=== PATIENT | male | born 1965 | race African-American/Black ===

== ENCOUNTER 2017-01-01 12:38 | Emergency (ER) | payer SELFPAY ==
[2017-01-01] MEDS ORDERED: Ketorolac Tromethamine 60 MG/2 ML VIAL ONE (13:09)
== END 2017-01-01 13:30 | disposition home or self-care (01) ==
LOC: NAV ERS 12:38
DX: M54.31 Sciatica, right side (principal); J44.9 Chronic obstructive pulmonary disease, unspecified; F17.210 Nicotine dependence, cigarettes, uncomplicated
CPT/HCPCS: 96372; J1885

== ENCOUNTER 2017-05-22 11:36 | Emergency (ER) | payer SELFPAY ==
--- NOTE | 2017-05-22 12:50 | RAD ---
CHEST TWO VIEWS: History: Cough. FINDINGS: Heart size and mediastinum are within normal limits. The lungs are clear of infiltrates. No significa nt bony findings. IMPRESSION: No active intrathoracic disease. POS: [facility]
== END 2017-05-22 12:26 | disposition home or self-care (01) ==
LOC: NAV ERS 11:36
DX: J40 Bronchitis, not specified as acute or chronic (principal); B34.9 Viral infection, unspecified; J44.1 Chronic obstructive pulmonary disease with (acute) exacerbation; F17.210 Nicotine dependence, cigarettes, uncomplicated; Z79.899 Other long term (current) drug therapy
CPT/HCPCS: 71046; 94640; J7620

== ENCOUNTER 2018-01-03 10:26 | Emergency (ER) | payer SELFPAY | END 2018-01-03 11:38 | disposition home or self-care (01) | LOC: NAV ERS 10:26 | DX: S81.012D Laceration without foreign body, left knee, subsequent encounter (principal); M25.562 Pain in left knee; J44.9 Chronic obstructive pulmonary disease, unspecified; F17.210 Nicotine dependence, cigarettes, uncomplicated; Z79.899 Other long term (current) drug therapy | CPT/HCPCS: 99283 ==

== ENCOUNTER 2018-01-13 12:15 | Emergency (ER) | payer SELFPAY ==
[2018-01-13] MEDS ORDERED: diphenhydrAMINE 50 MG/ML VIAL ONE (12:49)
[2018-01-13] MEDS ORDERED: Sodium Chloride 0.9% 1,000 ML ONE (12:49)
[2018-01-13] MEDS ORDERED: Metoclopramide HCl 10 MG/2 ML VIAL ONE (12:49)
--- NOTE | 2018-01-13 14:22 | CT ---
CT BRAIN WITHOUT CONTRAST: Date: 01/13/18 HISTORY: Trauma. Headache. COMPARISON: CT brain from 2016. FINDINGS: No acute hemorrhage or infarct. No midline shift or mass effect. Ventricular size and extra-axial CSF spaces are normal. Old right medial orbital wall fracture. IMPRESSION: No acute intracranial abnormality. POS: [facility]
== END 2018-01-13 15:13 | disposition home or self-care (01) ==
LOC: NAV ERS 12:15
DX: R51 Headache (principal); J44.9 Chronic obstructive pulmonary disease, unspecified; F17.210 Nicotine dependence, cigarettes, uncomplicated; Z79.899 Other long term (current) drug therapy
CPT/HCPCS: 70450; 96365; 96375; J1200; J2765; J7050

== ENCOUNTER 2018-08-03 14:23 | Emergency (ER) | payer SELFPAY ==
[2018-08-03] MEDS ORDERED: Lidocaine 1% w/Epinephrine 1:100K 30 ML VIAL ONE (14:49)
== END 2018-08-03 15:38 | disposition home or self-care (01) ==
LOC: NAV ERS 14:23
DX: L02.212 Cutaneous abscess of back [any part, except buttock and flank] (principal); J44.9 Chronic obstructive pulmonary disease, unspecified; F17.210 Nicotine dependence, cigarettes, uncomplicated
CPT/HCPCS: 10060; J2001

== ENCOUNTER 2018-08-20 21:24 | Emergency (ER) | payer SELFPAY ==
[2018-08-20] MEDS ORDERED: Acetaminophen 500 MG TAB ONE ×2 (21:34→21:35)
== END 2018-08-20 21:40 | disposition home or self-care (01) ==
LOC: NAV ERS 21:24
DX: R51 Headache (principal); F17.210 Nicotine dependence, cigarettes, uncomplicated; W19.XXXA Unspecified fall, initial encounter
CPT/HCPCS: 99283

== ENCOUNTER 2019-02-07 18:04 | Emergency (ER) | payer SELFPAY ==
[~2019-02-07 18:04] MED LIST: Iopamidol 370 76% 100 ML VIAL ONE
--- NOTE | 2019-02-07 18:18 | CT ---
Exam: CT brain PROVIDED CLINICAL HISTORY: Left-sided weakness COMPARISON: 01/13/2018 FINDINGS: The ventricular system is normal in size and morphology. No evidence for intracranial hemorrhage or mass effect. There is opacification of the majority of the nasal cavity as well as partial opacification of ethmoid air cells. The extracranial soft tissues and osseous structures appear other gomes unremarkable. IMPRESSION: No evidence for intracranial hemorrhage or mass effect. Findings communicated to the referring clinic evon 6:16 PM 02/07/2019.
[2019-02-07 18:23] LABS: INR-International Normal Ratio 1.1; Prothrombin Time 13.9 SEC (12.0-14.7)
[2019-02-07 18:24] LABS: PTT 26.6 SEC (22.9-36.1)
[2019-02-07 18:26] LABS: #Basophils 0.1 thou/uL (0.0-0.2); #Eosinphils 0.3 thou/uL (0.0-0.7); #Lymphocytes 2.8 thou/uL (1.20-3.40); #Monocytes 0.8 thou/uL (0.11-0.59); #Neutrophils 3.1 thou/uL (1.40-6.50); %Basophils 2.1 % (0.0-1.0); %Eosinophils 4.2 % (0.0-10.0); %Lymphocytes 39.3 % (21.0-51.0); %Monocytes 10.7 % (0.0-10.0); %Neutrophils 43.7 % (42.0-75.0); Hemoglobin 14.7 g/dL (14.0-18.0); Mean Corpuscular HGB CONC 31.9 g/dL (32.0-36.0); Mean Corpuscular Hemoglobin 29.6 pg (27.0-31.0); Mean Corpuscular Volume 92.8 fL (78.0-98.0); Mean Platelet Volume 6.4 fL (7.4-10.4); Platelet Count 346 thou/uL (130-400); RBC Distribution Width 14.4 % (11.5-14.5); Red Blood Cell (RBC) Count 4.98 mill/uL (4.70-6.10); White Blood Cell (WBC) Count 7.2 thou/uL (4.8-10.8)
[2019-02-07 18:35] LABS: ALT (SGPT) 15 U/L (8-55); AST (SGOT) 24 U/L (5-34); Albumin 4.7 g/dL (3.5-5.0); Alcohol 307 mg/dL (Less than 10); Alkaline Phosphatase 69 U/L (40-110); Anion Gap 17 mmol/L (10-20); BUN (Urea Nitrogen) 4 mg/dL (8.4-25.7); Bilirubin, Total 0.9 mg/dL (0.2-1.2); CK (CPK) 269 U/L (30-200); Calc. Creatinine Clearance 0 mL/min (70-130); Calcium 9.2 mg/dL (7.8-10.44); Carbon Dioxide 22 mmol/L (22-29); Chloride 102 mmol/L (98-107); Estimated GFR-MDRD Greater than 90; Globulin 3.4 g/dL (2.4-3.5); Glucose 99 mg/dL (70-105); Potassium 3.8 mmol/L (3.5-5.1); Protein, Total 8.1 g/dL (6.0-8.3); Sodium 137 mmol/L (136-145)
[2019-02-07 18:49] LABS: Bilirubin Negative (Negative); Blood, Urine Trace (Negative); Clarity Clear (Clear); Glucose, Urine (Dipstick) Negative (Negative); Leukocyte Negative (Negative); Nitrite Negative (Negative); Protein, Urine (Dipstick) 30 mg/dL (Neg-Trace); Urobilinogen 0.2 mg/dL (Less than 2)
[2019-02-07 18:58] LABS: Bacteria/HPF None Seen HPF (None Seen); RBC/HPF 0-3 HPF (0-3); Squamous Epithelial 0-3 HPF (0-3); WBC/HPF None Seen HPF (0-3)
[2019-02-07] MEDS ORDERED: Sodium Chloride 0.9% 1,000 ML ONE (18:58)
[2019-02-07 18:59] LABS: Amphetamine Not Detected (NotDetected); Barbiturates Screen Not Detected (NotDetected); Benzodiazepine Screen Not Detected (NotDetected); Cocaine Metabolite Screen Not Detected (NotDetected); Medtox Control Line Valid? VALID (VALID); Methadone Not Detected (NotDetected); Methamphetamine Not Detected (NotDetected); Opiate Screen Not Detected (NotDetected); Oxycodone Screen Not Detected (NotDetected); Phencyclidine (PCP) Not Detected (NotDetected); THC/Cannabinoid Screen Not Detected (NotDetected); Tricyclic Screen Not Detected (NotDetected)
--- NOTE | 2019-02-09 07:36 | CT ---
EXAM: CT angiogram great vessels neck with IV contrast and three-dimensional reconstructions CT angiogram brain with IV contrast and three-dimensional reconstructions PROVIDED CLINICAL HISTORY: Stroke COMPARISON: None FINDINGS: Contrast bolus in the neck is suboptimal, limiting evaluation. There is a normal three-vessel configuration of the great vessels at the arch. The common carotid, internal carotid, subclavian and vertebral arteries demonstrate no evidence for s ignificant stenosis. There is no evidence for focal vessel stenosis, branch occlusion or aneurysm involving the intracrani al circulation. IMPRESSION: Limited study as above without evidence for significant arterial vascular disease.
== END 2019-02-07 21:50 | disposition home or self-care (01) ==
LOC: NAV ERS 18:04
DX: F10.129 Alcohol abuse with intoxication, unspecified (principal); J44.9 Chronic obstructive pulmonary disease, unspecified; F17.210 Nicotine dependence, cigarettes, uncomplicated
CPT/HCPCS: 36415; 36416; 70450; 70496; 70498; 80053; 80306; 80307; 81003; 81015; 82550; 84484; 85025; 85610; 85730; 93005; 96360; J2997; J7050; Q9967

== ENCOUNTER 2019-08-20 16:22 | Emergency (ER) | payer SELFPAY ==
[2019-08-20] MEDS ORDERED: Mag-Al Plus 1200 MG/1200 MG/120 MG/30 ML UDCUP ONE (16:39)
[2019-08-20] MEDS ORDERED: Pantoprazole 40 MG VIAL ONE (16:39)
[2019-08-20] MEDS ORDERED: Lidocaine Viscous Sol 2% 15 ml UD Cup ONE (16:39)
[2019-08-20 16:42] LABS: #Basophils 0.1 thou/uL (0.0-0.2); #Eosinphils 0.4 thou/uL (0.0-0.7); #Lymphocytes 1.6 thou/uL (1.20-3.40); #Neutrophils 4.7 thou/uL (1.40-6.50); %Basophils 1.9 % (0.0-1.0); %Eosinophils 4.7 % (0.0-10.0); %Lymphocytes 20.4 % (21.0-51.0); %Monocytes 13.1 % (0.0-10.0); %Neutrophils 59.8 % (42.0-75.0); Hemoglobin 10.4 g/dL (14.0-18.0); Mean Corpuscular Hemoglobin 27.9 pg (27.0-31.0); Mean Corpuscular Volume 93.1 fL (78.0-98.0); Mean Platelet Volume 6.2 fL (7.4-10.4); Platelet Count 338 thou/uL (130-400); Red Blood Cell (RBC) Count 3.72 mill/uL (4.70-6.10); White Blood Cell (WBC) Count 7.9 thou/uL (4.8-10.8)
[2019-08-20 17:10] LABS: ALT (SGPT) 19 U/L (8-55); AST (SGOT) 34 U/L (5-34); Albumin 4.5 g/dL (3.5-5.0); Alcohol Less than 10 mg/dL (Less than 10); Alkaline Phosphatase 60 U/L (40-110); Anion Gap 11 mmol/L (10-20); BUN (Urea Nitrogen) 12 mg/dL (8.4-25.7); Bilirubin, Total 0.6 mg/dL (0.2-1.2); CK (CPK) 505 U/L (30-200); Calc. Creatinine Clearance 0 mL/min (70-130); Calcium 9.5 mg/dL (7.8-10.44); Carbon Dioxide 30 mmol/L (22-29); Chloride 104 mmol/L (98-107); Estimated GFR-MDRD 80; Glucose 111 mg/dL (70-105); Lipase 87 U/L (8-78); Potassium 4.1 mmol/L (3.5-5.1); Protein, Total 7.5 g/dL (6.0-8.3); Sodium 141 mmol/L (136-145)
--- NOTE | 2019-08-20 17:15 | RAD ---
PORTABLE CHEST: 08/20/19 PROVIDED CLINICAL HISTORY: Chest pain and intermittent cough. FINDINGS: Comparison 04/26/19. Cardiac and mediastinal silhouette is within normal limits. No focal consolidation, pleural fluid or pneumothorax apparent. IMPRESSION: No evidence for an acute cardiopulmonary process. POS: [facility]
== END 2019-08-20 18:08 | disposition home or self-care (01) ==
LOC: NAV ERS 16:22
DX: K29.20 Alcoholic gastritis without bleeding (principal); J44.9 Chronic obstructive pulmonary disease, unspecified; F17.210 Nicotine dependence, cigarettes, uncomplicated
CPT/HCPCS: 71045; 80053; 80307; 82550; 83690; 84484; 85025; 93005; 96374; C9113

== ENCOUNTER 2020-04-27 10:13 | Emergency (ER) | payer SELFPAY ==
--- NOTE | 2020-04-27 10:42 | RAD ---
EXAM: Two views chest PROVIDED CLINICAL HISTORY: Injury. COMPARISON: 08/20/2019 FINDINGS: Cardiac silhouette and pulmonary vasculature are within normal limits. Linear bibasilar densities ar e present which may be related to bibasilar atelectasis. Developing pneumonitis right lung base cannot be entirely excluded. There is no consolidation or pleural fluid identified. Degenerative bean ges are seen in the spine. IMPRESSION: 1. Bibasilar linear densities greater on the right which is most likely attributable to atelectasis. Developing pneumonitis could not be entirely excluded.
--- NOTE | 2020-04-27 10:44 | RAD ---
EXAM: XR Ribs Rt>=2 view STANDARD PROVIDED CLINICAL HISTORY: Injury. COMPARISON: Chest x-ray on 04/27/2020 and 08/20/2019 FINDINGS: Bibasilar linear densities are seen which are most likely attributable to atelectasis. No pleural eff usion or pneumothorax is identified. Mild degenerative changes are seen in the thoracic spine. No right-sided rib fracture is appreciated. A stable remote fracture is seen involving the posterolatera l left eighth rib. IMPRESSION: 1. No right-sided rib fracture is seen. 2. Bibasilar linear densities felt to most likely be attributable to atelectasis.
== END 2020-04-27 11:15 | disposition home or self-care (01) ==
LOC: NAV ERS 10:13
DX: S23.41XA Sprain of ribs, initial encounter (principal); J44.9 Chronic obstructive pulmonary disease, unspecified; F17.210 Nicotine dependence, cigarettes, uncomplicated; W22.8XXA Striking against or struck by other objects, initial encounter
CPT/HCPCS: 71046

== ENCOUNTER 2020-06-07 10:47 | Emergency (ER) | payer SELFPAY | END 2020-06-07 11:55 | disposition home or self-care (01) | LOC: NAV ERS 10:47 | DX: R76.11 Nonspecific reaction to tuberculin skin test without active tuberculosis (principal); J44.9 Chronic obstructive pulmonary disease, unspecified; F17.210 Nicotine dependence, cigarettes, uncomplicated | CPT/HCPCS: 71046 ==

== ENCOUNTER 2020-12-09 11:57 | Outpatient (CLI) | payer SELFPAY | END 2020-12-09 11:58 | disposition home or self-care (01) | LOC: NAV RAD 11:57 | PROVIDERS: ATTEND Preventive Medicine Public Health & General Preventive Medicine | DX: A15.0 Tuberculosis of lung (principal) | CPT/HCPCS: 71046 ==

== ENCOUNTER 2020-12-15 22:37 | Emergency (ER) | payer SELFPAY ==
[2020-12-15] MEDS ORDERED: Ketorolac Tromethamine 60 MG/2 ML VIAL ONE (23:32)
== END 2020-12-15 23:40 | disposition home or self-care (01) ==
LOC: NAV ERS 22:37
DX: M43.6 Torticollis (principal); M62.838 Other muscle spasm; J44.9 Chronic obstructive pulmonary disease, unspecified; F17.210 Nicotine dependence, cigarettes, uncomplicated
CPT/HCPCS: 96372; 99283; J1885

== ENCOUNTER 2021-03-30 08:54 | Emergency (ER) | payer SELFPAY ==
[2021-03-30 10:09] LABS: ALT (SGPT) 20 U/L (8-55); AST (SGOT) 23 U/L (5-34); Alkaline Phosphatase 61 U/L (40-110); Anion Gap 12 mmol/L (10-20); BUN (Urea Nitrogen) 6 mg/dL (8.4-25.7); Bilirubin, Total 0.5 mg/dL (0.2-1.2); CK (CPK) 203 U/L (30-200); Calc. Creatinine Clearance 0 mL/min (70-130); Calcium 9.4 mg/dL (7.8-10.44); Carbon Dioxide 23 mmol/L (22-29); Chloride 104 mmol/L (98-107); Globulin 3.5 g/dL (2.4-3.5); Glucose 109 mg/dL (70-105); Hemoglobin 13.1 g/dL (14.0-18.0); Lipase 32 U/L (8-78); Mean Corpuscular HGB CONC 31.3 g/dL (32.0-36.0); Mean Corpuscular Hemoglobin 27.8 pg (27.0-31.0); Mean Corpuscular Volume 88.7 fL (78.0-98.0); Mean Platelet Volume 5.7 fL (7.4-10.4); Platelet Count 350 thou/uL (130-400); Potassium 3.8 mmol/L (3.5-5.1); Protein, Total 7.4 g/dL (6.0-8.3); RBC Distribution Width 16.3 % (11.5-14.5); Red Blood Cell (RBC) Count 4.74 mill/uL (4.70-6.10); Sodium 135 mmol/L (136-145); White Blood Cell (WBC) Count 4.2 thou/uL (4.8-10.8)
[2021-03-30 10:11] LABS: Albumin 3.9 g/dL (3.5-5.0)
[2021-03-30 10:38] LABS: Anisocytosis SLIGHT = 6-15 cells (100X) (0-5/hpf); Eosinophils 5 % (0-10); Lymphocytes 10 % (21-51); MDiff Complete? YES; Monocytes 5 % (0-10); Neutrophil 75 % (42-75); Reactive Lymphocytes 4 % (0-10)
[2021-03-30] MEDS ORDERED: Ketorolac Tromethamine 30 MG/ML VIAL ONE (11:47)
[2021-03-31 15:27] LABS: SARS-CoV-2 PCR by NAA Not Detected (NotDetected)
== END 2021-03-30 11:57 | disposition home or self-care (01) ==
LOC: NAV ERS 08:54
DX: R07.89 Other chest pain (principal); J06.9 Acute upper respiratory infection, unspecified; Z20.822 Contact with and (suspected) exposure to COVID-19; J44.9 Chronic obstructive pulmonary disease, unspecified
CPT/HCPCS: 36415; 71045; 71275; 80053; 82550; 83605; 83690; 84484; 85025; 85379; 93005; 96374; J1885; U0003; U0005

== ENCOUNTER 2021-07-26 22:23 | Emergency (ER) | payer SELFPAY ==
[2021-07-26 22:44] LABS: Clarity Clear (Clear); pH, Urine 6.5 (5.0-9.0)
[2021-07-26 22:45] LABS: Bilirubin Negative (Negative); Blood, Urine Negative (Negative); Glucose, Urine (Dipstick) Negative (Negative); Ketone, Urine Negative (Negative); Leukocyte Negative (Negative); Nitrite Negative (Negative); Protein, Urine (Dipstick) Negative (Neg-Trace); Urobilinogen 0.2 mg/dL (Less than 2)
[2021-07-26] MEDS ORDERED: Pantoprazole 40 MG VIAL ONE (23:00)
[2021-07-26 23:01] LABS: #Basophils 0.1 thou/uL (0.0-0.2); #Eosinphils 0.1 thou/uL (0.0-0.7); #Lymphocytes 1.5 thou/uL (1.20-3.40); #Monocytes 0.8 thou/uL (0.11-0.59); #Neutrophils 6.8 thou/uL (1.40-6.50); %Basophils 1.2 % (0.0-1.0); %Eosinophils 0.9 % (0.0-10.0); %Lymphocytes 16.3 % (21.0-51.0); %Monocytes 8.5 % (0.0-10.0); Hemoglobin 12.6 g/dL (14.0-18.0); Mean Corpuscular HGB CONC 30.5 g/dL (32.0-36.0); Mean Corpuscular Hemoglobin 29.5 pg (27.0-31.0); Mean Corpuscular Volume 96.6 fL (78.0-98.0); Mean Platelet Volume 7.7 fL (7.4-10.4); Platelet Count 295 thou/uL (130-400); RBC Distribution Width 15.8 % (11.5-14.5); Red Blood Cell (RBC) Count 4.29 mill/uL (4.70-6.10); White Blood Cell (WBC) Count 9.3 thou/uL (4.8-10.8)
[2021-07-26 23:20] LABS: ALT (SGPT) 20 U/L (8-55); AST (SGOT) 29 U/L (5-34); Albumin 4.2 g/dL (3.5-5.0); Alkaline Phosphatase 55 U/L (40-110); Anion Gap 17 mmol/L (10-20); BUN (Urea Nitrogen) 6 mg/dL (8.4-25.7); Bilirubin, Total 0.5 mg/dL (0.2-1.2); Calc. Creatinine Clearance 0 mL/min (70-130); Calcium 9.2 mg/dL (7.8-10.44); Carbon Dioxide 22 mmol/L (22-29); Chloride 100 mmol/L (98-107); Glucose 100 mg/dL (70-105); Lipase 58 U/L (8-78); Protein, Total 7.2 g/dL (6.0-8.3); Sodium 135 mmol/L (136-145)
== END 2021-07-26 23:44 | disposition home or self-care (01) ==
LOC: NAV ERS 22:23
DX: K29.20 Alcoholic gastritis without bleeding (principal); J44.9 Chronic obstructive pulmonary disease, unspecified; F17.210 Nicotine dependence, cigarettes, uncomplicated
CPT/HCPCS: 71046; 80053; 80307; 81003; 83690; 85025; 96374; C9113

== ENCOUNTER 2021-10-18 15:13 | Emergency (ER) | payer SELFPAY ==
[2021-10-18] MEDS ORDERED: Lidocaine 1% 20 ML MDV ONE (16:20)
[2021-10-18] MEDS ORDERED: Bacitracin 1 PK ONE (17:43)
== END 2021-10-18 18:15 | disposition home or self-care (01) ==
LOC: NAV ERS 15:13
DX: S61.313A Laceration without foreign body of left middle finger with damage to nail, initial encounter (principal); F17.210 Nicotine dependence, cigarettes, uncomplicated; W23.0XXA Caught, crushed, jammed, or pinched between moving objects, initial encounter

== ENCOUNTER 2021-10-30 14:39 | Emergency (ER) | payer SELFPAY | END 2021-10-30 15:38 | disposition home or self-care (01) | LOC: NAV ERS 14:39 | DX: S61.315D Laceration without foreign body of left ring finger with damage to nail, subsequent encounter (principal); J44.9 Chronic obstructive pulmonary disease, unspecified; F17.210 Nicotine dependence, cigarettes, uncomplicated; X58.XXXD Exposure to other specified factors, subsequent encounter ==

== ENCOUNTER 2024-04-06 10:28 | Emergency (ER) | payer SELFPAY ==
[2024-04-06] MEDS ORDERED: Sodium Chloride 0.9% 1,000 ML ONE (10:52)
[2024-04-06] MEDS ORDERED: Ketorolac Tromethamine 30 MG (1 mL) VIAL ONE (10:52)
[2024-04-06] MEDS ORDERED: Ipratropium/Albuterol 3 ML NEB ONE (10:52)
[2024-04-06 10:57] LABS: #Basophils 0.1 thou/uL (0.0-0.2); #Lymphocytes 1.4 thou/uL (1.20-3.40); #Neutrophils 8.2 thou/uL (1.40-6.50); %Basophils 0.9 % (0.0-1.0); %Eosinophils 0.4 % (0.0-10.0); %Lymphocytes 12.9 % (21.0-51.0); %Monocytes 9.5 % (0.0-10.0); %Neutrophils 76.3 % (42.0-75.0); Hematocrit 48.9 % (42.0-52.0); Hemoglobin 14.8 g/dL (14.0-18.0); Manual Diff?? NO; Mean Corpuscular HGB CONC 30.3 g/dL (32.0-36.0); Mean Corpuscular Hemoglobin 28.8 pg (27.0-31.0); Mean Corpuscular Volume 88.4 fl (78.0-98.0); Mean Platelet Volume 6.3 fL (7.4-10.4); Platelet Count 385 10x3/uL (130-400); RBC Distribution Width 15.4 % (11.5-14.5); Red Blood Cell (RBC) Count 5.53 mill/uL (4.70-6.10); White Blood Cell (WBC) Count 10.7 10x3/uL (4.8-10.8)
[2024-04-06 11:08] LABS: Troponin I 0.022 ng/mL (< 0.028)
[2024-04-06 11:09] LABS: ALT (SGPT) 16 U/L (8-55); AST (SGOT) 24 U/L (5-34); Albumin 4.1 g/dL (3.5-5.0); Alkaline Phosphatase 86 U/L (40-110); Anion Gap 16 mmol/L (10-20); BUN (Urea Nitrogen) 9 mg/dL (8.4-25.7); Bilirubin, Total 1.9 mg/dL (0.2-1.2); Calc. Creatinine Clearance 0 mL/min (70-130); Calcium 9.6 mg/dL (7.8-10.44); Carbon Dioxide 26 mmol/L (22-29); Chloride 96 mmol/L (98-107); Estimated GFR 100; Globulin 4.6 g/dL (2.4-3.5); Glucose 94 mg/dL (70-105); Potassium 4.3 mmol/L (3.5-5.1); Protein, Total 8.7 g/dL (6.0-8.3); Sodium 134 mmol/L (136-145)
[2024-04-06] MEDS ORDERED: predniSONE 20 MG TAB ONE (11:30)
== END 2024-04-06 11:50 | disposition home or self-care (01) ==
LOC: NAV ERS 10:28
DX: B34.9 Viral infection, unspecified (principal); J44.1 Chronic obstructive pulmonary disease with (acute) exacerbation; F17.210 Nicotine dependence, cigarettes, uncomplicated; Z79.51 Long term (current) use of inhaled steroids
CPT/HCPCS: 71046; 80053; 83880; 84484; 85025; 87428; 93005; 94760; 96361; 96374; J1885; J7030; J7512; J7620

== ENCOUNTER 2024-11-16 10:12 | Emergency (ER) | payer SELFPAY ==
[2024-11-16 10:53] LABS: #Basophils 0.1 thou/uL (0.0-0.2); #Eosinophils 0.4 thou/uL (0.0-0.7); #Lymphocytes 1.1 thou/uL (1.20-3.40); #Monocytes 0.6 thou/uL (0.11-0.59); #Neutrophils 4.0 thou/uL (1.40-6.50); %Basophils 2.1 % (0.0-1.0); %Eosinophils 6.2 % (0.0-10.0); %Lymphocytes 18.0 % (21.0-51.0); %Monocytes 9.9 % (0.0-10.0); %Neutrophils 63.8 % (42.0-75.0); Hematocrit 45.2 % (42.0-52.0); Hemoglobin 14.3 g/dL (14.0-18.0); Mean Corpuscular Hemoglobin 28.3 pg (27.0-31.0); Mean Corpuscular Volume 89.4 fl (78.0-98.0); Platelet Count 371 10x3/uL (130-400); Red Blood Cell (RBC) Count 5.05 mill/uL (4.70-6.10); White Blood Cell (WBC) Count 6.3 10x3/uL (4.8-10.8)
[2024-11-16 11:07] LABS: Troponin I 0.020 ng/mL (< 0.028)
[2024-11-16 11:08] LABS: ALT (SGPT) 11 U/L (Less than 45); AST (SGOT) 37 U/L (11-34); Albumin 4.2 g/dL (3.1-4.5); Alkaline Phosphatase 64 U/L (40-110); Anion Gap 20 mmol/L (10-20); BUN (Urea Nitrogen) 6 mg/dL (8.4-25.7); Bilirubin, Total 1.1 mg/dL (0.3-1.2); Calc. Creatinine Clearance 0 mL/min (70-130); Calcium 9.1 mg/dL (7.8-10.44); Carbon Dioxide 24 mmol/L (22-29); Chloride 100 mmol/L (98-107); Globulin 3.6 g/dL (2.4-3.5); Glucose 79 mg/dL (70-105); Potassium 4.4 mmol/L (3.5-5.1); Sodium 140 mmol/L (136-145)
== END 2024-11-16 11:46 | disposition home or self-care (01) ==
LOC: NAV ERS 10:12
DX: J44.1 Chronic obstructive pulmonary disease with (acute) exacerbation (principal); F17.210 Nicotine dependence, cigarettes, uncomplicated
CPT/HCPCS: 71045; 80053; 83880; 84484; 85025; 87426; 93005; 96374; J2919; J7620